=== PATIENT | male | born 1965 | race Hispanic/Latino ===

== ENCOUNTER 2017-05-03 11:24 | Emergency (ER) | payer MEDICARE ==
[2017-05-03 11:34] VITALS: BP 137/92
[2017-05-03 13:51] LABS: Basophils % (Auto) 0.6 % (0.0-1.8); Eosinophils # (Auto) 0.1 K/mm3 (0.0-0.4); Eosinophils % (Auto) 1.8 % (0.0-4.3); Hematocrit 46.9 % (35.5-45.6); Hemoglobin 15.6 gm/dl (11.8-15.2); Lymphocytes # (Auto) 2.3 K/mm3 (1.2-5.4); Lymphocytes % (Auto) 27.9 % (13.4-35.0); Mean Corpuscular HGB Conc 33 % (32-34); Mean Corpuscular Hemoglobin 30 pg (28-32); Mean Corpuscular Volume 89 fl (84-94); Monocytes # (Auto) 0.7 K/mm3 (0.0-0.8); Monocytes % (Auto) 8.2 % (0.0-7.3); Platelet Count 243 K/mm3 (140-440); Red Blood Count 5.25 M/mm3 (3.65-5.03)
[2017-05-03 14:09] LABS: BUN/Creatinine Ratio 15; Blood Urea Nitrogen 12 mg/dL (9-20); Calcium 9.1 mg/dL (8.4-10.2); Hemolysis Index 17
== END 2017-05-03 19:45 | disposition left against medical advice (07) ==
LOC: ED 11:24
DX: R42 Dizziness and giddiness (principal); R06.82 Tachypnea, not elsewhere classified; R00.1 Bradycardia, unspecified; Z53.21 Procedure and treatment not carried out due to patient leaving prior to being seen by health care provider
CPT/HCPCS: 36415; 80048; 85025

== ENCOUNTER 2018-06-27 14:32 | Emergency (ER) | payer MEDICARE ==
[2018-06-27 14:42] VITALS: BP 151/93
--- NOTE | 2018-06-27 14:48 | Emergency Department Report ---
Chief Complaint: Back Pain/Injury Stated Complaint: BACK PAIN TINGLING BOTH FEET Time Seen by Provider: 06/27/18 14:46 - HPI History of Present Illness: pain in back sp fall 1 y ago worse today no new trauma pos dysuria pmh htn obese NO OK/CVA/DM hx kidney stones rx none off his bp meds due to $ was on depakote- does not know why pcp none poor informant MSE completed - Exam Vital Signs: Vital Signs 06/27/18 14:37 Temperature 97.5 F L Pulse Rate 80 Respiratory 18 Rate Blood Pressure 151/93 O2 Sat by Pulse 96 Oximetry MSE screening note: Focused history and physical exam performed. Due to findings the following was ordered: ED Disposition for MSE Condition: Stable
[2018-06-27 15:22] LABS: Hemoglobin 14.9 gm/dl (11.8-15.2); Mean Corpuscular HGB Conc 33 % (32-34); Mean Corpuscular Volume 88 fl (84-94); Platelet Count 234 K/mm3 (140-440); Red Blood Count 5.14 M/mm3 (3.65-5.03); Red Cell Distribution Width 14.8 % (13.2-15.2)
[2018-06-27 15:29] LABS: Bilirubin,Urine NEG (Negative); Blood,Urine NEG (Negative); Color,Urine Yellow (Yellow); Mucus,Urine 1+ /HPF; Protein,Urine <15 mg/dL mg/dL (Negative)
[2018-06-27 15:38] LABS: Alanine Aminotransferase 24 units/L (7-56); Albumin 4.1 g/dL (3.9-5); BUN/Creatinine Ratio 10; Blood Urea Nitrogen 8 mg/dL (9-20); Calcium 8.9 mg/dL (8.4-10.2); Hemolysis Index 7
[2018-06-27] MEDS ORDERED: DELTASONE PO ONE (15:49)
[2018-06-27] MEDS ORDERED: TORADOL IM ONE (15:49)
--- NOTE | 2018-06-27 15:56 | Emergency Department Report ---
ED Back Pain/Injury HPI - General Chief Complaint: Back Pain/Injury Stated Complaint: BACK PAIN TINGLING BOTH FEET Time Seen by Provider: 06/27/18 14:46 Source: patient Limitations: No Limitations - History of Present Illness Initial Comments: This is a 53-year-old male nontoxic, well nourished in appearance, no acute signs of distress presents to the ED with c/o of acute on chronic lower back pain. Patient stated that the past 2 days he was moving furniture and developed this pain. Patient states has history of sciatica nerve pain which is similar symptoms as today. Patient states that pain radiates through to his bilateral lower extremity. Patient denies any trauma. Denies any bladder or bowel instability. Patient denies any urinary symptoms. Denies any fever, chills, nausea, vomiting, headache, stiff neck, chest pain or shortness of breath. Patient denies any numbness or tingling. Denies any allergies. MD Complaint: back pain -: days(s) (2) Similar Symptoms Previously: Yes Place: home Radiation: left leg, right leg Severity: mild Severity scale (0 -10): 8 Quality: aching Consistency: intermittent Improves With: immobilization, sitting upright Worsens With: movement, walking Context: while lifting, turning/twisting Associated Symptoms: denies other symptoms. denies: confusion, weakness, chest pain, numbness, difficulty walking, cough, difficulty urinating, diaphoresis, incontinence, fever/chills, constipation, headaches, abdominal pain, loss of appetite, malaise, nausea/vomiting, rash, seizure, shortness of breath, syncope - Related Data Home Medications Medication Instructions Recorded Confirmed Last Taken Divalproex Sodium [Depakote ER] 1,000 mg PO QHS 01/27/18 01/27/18 Unknown Divalproex Sodium [Depakote ER] 250 mg PO QHS 01/27/18 01/27/18 Unknown Lisinopril [Zestril TAB] 20 mg PO QDAY 01/27/18 01/27/18 Unknown cloNIDine [Catapres] 0.2 mg PO BID 01/27/18 01/27/18 Unknown Previous Rx's Medication Instructions Recorded Last Taken Type Pantoprazole [Protonix TAB] 40 mg PO QDAY #30 tablet 02/01/18 Unknown Rx traMADol [Ultram] 50 mg PO Q6HR PRN #14 tablet 02/01/18 Unknown Rx Cyclobenzaprine [Flexeril] 10 mg PO QHS PRN #10 tablet 06/27/18 Unknown Rx Ibuprofen [Motrin] 600 mg PO Q8H PRN #20 tablet 06/27/18 Unknown Rx Allergies Allergy/AdvReac Type Severity Reaction Status Date / Time No Known Allergies Allergy Verified 01/27/18 07:15 ED Review of Systems ROS: Stated complaint: BACK PAIN TINGLING BOTH FEET Other details as noted in HPI Constitutional: denies: chills, fever Eyes: denies: eye pain, eye discharge, vision change ENT: denies: ear pain, throat pain Respiratory: denies: cough, shortness of breath, wheezing Cardiovascular: denies: chest pain, palpitations Endocrine: no symptoms reported Gastrointestinal: denies: abdominal pain, nausea, vomiting, diarrhea Genitourinary: denies: urgency, dysuria Musculoskeletal: back pain. denies: joint swelling, arthralgia Skin: denies: rash, lesions Neurological: denies: headache, weakness, paresthesias Psychiatric: denies: anxiety, depression Hematological/Lymphatic: denies: easy bleeding, easy bruising ED Past Medical Hx - Past Medical History Previous Medical History?: Yes Hx Hypertension: Yes Hx Psychiatric Treatment: Yes (patient disabled secondary to "mental" problems) Additional medical history: Hernia - Surgical History Past Surgical History?: Yes Hx Appendectomy: Yes Additional Surgical History: Scrotal abscess drainage - Social History Smoking Status: Never Smoker Substance Use Type: Prescribed - Medications Home Medications: Home Medications Medication Instructions Recorded Confirmed Last Taken Type Divalproex Sodium [Depakote ER] 1,000 mg PO QHS 01/27/18 01/27/18 Unknown History Divalproex Sodium [Depakote ER] 250 mg PO QHS 01/27/18 01/27/18 Unknown History Lisinopril [Zestril TAB] 20 mg PO QDAY 01/27/18 01/27/18 Unknown History cloNIDine [Catapres] 0.2 mg PO BID 01/27/18 01/27/18 Unknown History Pantoprazole [Protonix TAB] 40 mg PO QDAY #30 tablet 02/01/18 Unknown Rx traMADol [Ultram] 50 mg PO Q6HR PRN #14 tablet 02/01/18 Unknown Rx Cyclobenzaprine [Flexeril] 10 mg PO QHS PRN #10 tablet 06/27/18 Unknown Rx Ibuprofen [Motrin] 600 mg PO Q8H PRN #20 tablet 06/27/18 Unknown Rx ED Physical Exam - General Limitations: No Limitations General appearance: alert, in no apparent distress - Head Head exam: Present: atraumatic, normocephalic - Neck Neck exam: Present: normal inspection, full ROM - Extremities Exam Extremities exam: Present: normal inspection, full ROM - Back Exam Back exam: Present: normal inspection, full ROM, paraspinal tenderness (lumbar paraspinal area). Absent: tenderness, CVA tenderness (R), CVA tenderness (L), muscle spasm, vertebral tenderness, rash noted - Expanded Back Exam Expanded Back exam: Absent: saddle anesthesia Back exam: Negative Straight Leg Raising: Left, Right - Neurological Exam Neurological exam: Present: alert, oriented X3, normal gait - Psychiatric Psychiatric exam: Present: normal affect, normal mood - Skin Skin exam: Present: warm, dry, intact, normal color. Absent: rash ED Course Vital Signs 06/27/18 14:37 Temperature 97.5 F L Pulse Rate 80 Respiratory 18 Rate Blood Pressure 151/93 O2 Sat by Pulse 96 Oximetry - Reevaluation(s) Reevaluation #1: 06/27/18 15:54 Patient is speaking in full sentences with no signs of distress noted. ED Medical Decision Making - Lab Data Result diagrams: 06/27/18 14:52 06/27/18 14:52 - Medical Decision Making This is a 53-year-old male that presents with low back strain. Patient is stable was examined by me. There is no spinal tenderness. There is no cauda equina syndrome during examination. No bladder or bowel instability. Patient received Toradol 60 mg IM and prednisone in the ED which he stated that his symptoms has resolved and subsided. Patient is discharged with muscle relaxant and Motrin. Patient was instructed not to operate any machinery while taking muscle relaxant as they cause her drowsiness. Patient was referred to Follow-up with a primary care doctor in 3-5 days or if symptoms worsen and continue return to emergency room as soon as possible. At time of discharge, the patient does not seem toxic or ill in appearance. No acute signs of distress noted. Patient agrees to discharge treatment plan of care. No further questions noted by the patient. This chart is dictated with using [employer] Critical care attestation.: If time is entered above; I have spent that time in minutes in the direct care of this critically ill patient, excluding procedure time. ED Disposition Clinical Impression: Low back strain Qualifiers: Encounter type: initial encounter Qualified Code(s): S39.012A - Strain of muscle, fascia and tendon of lower back, initial encounter Disposition: TO HOME OR SELFCARE Is pt being admited?: No Does the pt Need Aspirin: No Condition: Stable Instructions: Low Back Strain (ED), Cyclobenzaprine (By mouth) Additional Instructions: Follow-up with your primary care doctor in 3-5 days or if symptoms worsen such as bladder or bowel stability, chest pain, short of breath, numbness or tingling sensation in extremities, headache, dizziness, visual changes, nausea vomiting, or abdominal pain, return back to emergency room as was possible. Take ibuprofen and Flexeril as prescribed. Do not operate heavy machinery while taking Flexeril due to sedation Prescriptions: Cyclobenzaprine [Flexeril] 10 mg PO QHS PRN #10 tablet PRN Reason: Muscle Spasm Ibuprofen [Motrin] 600 mg PO Q8H PRN #20 tablet PRN Reason: Pain Referrals: PRIMARY CARE, [Referring] - 3-5 Days BISMARK MCNEIL MD [Staff Physician] - 3-5 Days [facility] [Outside] - 3-5 Days [facility] [Outside] - 3-5 Days Forms: Work/School Release Form(ED)
== END 2018-06-27 17:05 | disposition home or self-care (01) ==
LOC: ED 14:32
DX: S39.012A Strain of muscle, fascia and tendon of lower back, initial encounter (principal); I10 Essential (primary) hypertension; Z90.49 Acquired absence of other specified parts of digestive tract; W22.03XA Walked into furniture, initial encounter; Y93.89 Activity, other specified; Y92.098 Other place in other non-institutional residence as the place of occurrence of the external cause; Y99.8 Other external cause status
CPT/HCPCS: 36415; 80053; 81001; 85027; 96372; 99283; J1885; J7512

== ENCOUNTER 2018-09-02 19:32 | Inpatient (IN) | payer MEDICARE ==
--- NOTE | 2018-09-02 20:01 | Emergency Department Report ---
Blank Doc - Documentation Documentation: 53 y old male presents with lower abd pain with blood in the stool x todayfirst episode labs ordered ct abd main side eval
[2018-09-02 20:38] LABS: Basophils # (Auto) 0.1 K/mm3 (0.0-0.1); Basophils % (Auto) 0.5 % (0.0-1.8); Eosinophils % (Auto) 0.4 % (0.0-4.3); Hematocrit 45.4 % (35.5-45.6); Hemoglobin 15.9 gm/dl (11.8-15.2); Lymphocytes # (Auto) 1.9 K/mm3 (1.2-5.4); Lymphocytes % (Auto) 17.5 % (13.4-35.0); Mean Corpuscular HGB Conc 35 % (32-34); Mean Corpuscular Volume 88 fl (84-94); Monocytes # (Auto) 0.8 K/mm3 (0.0-0.8); Monocytes % (Auto) 7.4 % (0.0-7.3); Platelet Count 279 K/mm3 (140-440); Red Blood Count 5.16 M/mm3 (3.65-5.03); Red Cell Distribution Width 14.7 % (13.2-15.2)
[2018-09-02 20:50] LABS: INR 0.95 (0.87-1.13)
[2018-09-02 20:51] LABS: Partial Thromboplastin Time 25.7 Sec. (24.2-36.6)
[2018-09-02 20:57] LABS: Alanine Aminotransferase 30 units/L (7-56); Albumin 4.4 g/dL (3.9-5); BUN/Creatinine Ratio 12; Blood Urea Nitrogen 12 mg/dL (9-20); Calcium 9.1 mg/dL (8.4-10.2); Hemolysis Index 22
[2018-09-02] MEDS ORDERED: SOLU-Medrol ONE (22:36)
--- NOTE | 2018-09-02 22:55 | Emergency Department Report ---
ED GI Bleed HPI - General Chief complaint: GI Bleed Stated complaint: BLOOD IN STOOL Time Seen by Provider: 09/02/18 22:40 Source: patient Mode of arrival: Ambulatory Limitations: No Limitations - History of Present Illness Initial comments: Patient is a 53-year-old male that presents emergency room with bright red blood per rectum 1 day. Patient states his abdominal pain or blood per rectum started at 4 PM. Patient states symptoms worsening. Patient states pain is 10 out of 10. Patient states his pain is worse with movement and better with rest. Patient states he is having generalized abdominal pain but is mostly in the left lower quadrant. MD complaint: gross hematochezia -: Sudden Location: diffuse Radiation: none Severity scale (0 -10): 10 Quality: sharp, constant Consistency: constant Improves with: rest Worsens with: bowel movement, movement Associated Symptoms: abdominal pain. denies: nausea, vomiting, epistaxis, headaches, loss of appetite, malaise, easy bruising, rash, other bleeding, shortness of breath, syncope, weakness - Related Data Home Medications Medication Instructions Recorded Confirmed Last Taken Divalproex Sodium [Depakote ER] 1,000 mg PO QHS 01/27/18 01/27/18 Unknown Divalproex Sodium [Depakote ER] 250 mg PO QHS 01/27/18 01/27/18 Unknown Lisinopril [Zestril TAB] 20 mg PO QDAY 01/27/18 01/27/18 Unknown cloNIDine [Catapres] 0.2 mg PO BID 01/27/18 01/27/18 Unknown Previous Rx's Medication Instructions Recorded Last Taken Type Pantoprazole [Protonix TAB] 40 mg PO QDAY #30 tablet 02/01/18 Unknown Rx traMADol [Ultram] 50 mg PO Q6HR PRN #14 tablet 02/01/18 Unknown Rx Cyclobenzaprine [Flexeril] 10 mg PO QHS PRN #10 tablet 06/27/18 Unknown Rx Ibuprofen [Motrin] 600 mg PO Q8H PRN #20 tablet 06/27/18 Unknown Rx Allergies Allergy/AdvReac Type Severity Reaction Status Date / Time No Known Allergies Allergy Verified 01/27/18 07:15 ED Review of Systems ROS: Stated complaint: BLOOD IN STOOL Other details as noted in HPI Constitutional: denies: chills, fever Eyes: denies: eye pain, eye discharge, vision change ENT: denies: ear pain, throat pain Respiratory: denies: cough, shortness of breath, wheezing Cardiovascular: denies: chest pain, palpitations Endocrine: no symptoms reported Gastrointestinal: as per HPI, abdominal pain, hematochezia. denies: nausea, vomiting, diarrhea Genitourinary: denies: urgency, dysuria Musculoskeletal: denies: back pain, joint swelling, arthralgia Skin: denies: rash, lesions Neurological: denies: headache, weakness, paresthesias Psychiatric: denies: anxiety, depression Hematological/Lymphatic: denies: easy bleeding, easy bruising ED Past Medical Hx - Past Medical History Previous Medical History?: Yes Hx Hypertension: Yes Hx Psychiatric Treatment: Yes (patient disabled secondary to "mental" problems) Additional medical history: Hernia - Surgical History Past Surgical History?: Yes Hx Appendectomy: Yes Additional Surgical History: Scrotal abscess drainage - Family History Family history: no significant - Social History Smoking Status: Never Smoker Substance Use Type: None - Medications Home Medications: Home Medications Medication Instructions Recorded Confirmed Last Taken Type Divalproex Sodium [Depakote ER] 1,000 mg PO QHS 01/27/18 01/27/18 Unknown History Divalproex Sodium [Depakote ER] 250 mg PO QHS 01/27/18 01/27/18 Unknown History Lisinopril [Zestril TAB] 20 mg PO QDAY 01/27/18 01/27/18 Unknown History cloNIDine [Catapres] 0.2 mg PO BID 01/27/18 01/27/18 Unknown History Pantoprazole [Protonix TAB] 40 mg PO QDAY #30 tablet 02/01/18 Unknown Rx traMADol [Ultram] 50 mg PO Q6HR PRN #14 tablet 02/01/18 Unknown Rx Cyclobenzaprine [Flexeril] 10 mg PO QHS PRN #10 tablet 06/27/18 Unknown Rx Ibuprofen [Motrin] 600 mg PO Q8H PRN #20 tablet 06/27/18 Unknown Rx ED Physical Exam - General Limitations: No Limitations General appearance: alert, in no apparent distress - Head Head exam: Present: atraumatic, normocephalic - Eye Eye exam: Present: normal appearance - ENT ENT exam: Present: mucous membranes moist - Neck Neck exam: Present: normal inspection - Respiratory Respiratory exam: Present: normal lung sounds bilaterally. Absent: respiratory distress - Cardiovascular Cardiovascular Exam: Present: regular rate, normal rhythm. Absent: systolic murmur, diastolic murmur, rubs, gallop - GI/Abdominal GI/Abdominal exam: Present: soft, tenderness (left lower quadrant tenderness), normal bowel sounds - Rectal Rectal exam: Present: deferred - Extremities Exam Extremities exam: Present: normal inspection - Back Exam Back exam: Present: normal inspection - Neurological Exam Neurological exam: Present: alert, oriented X3 - Psychiatric Psychiatric exam: Present: normal affect, normal mood - Skin Skin exam: Present: warm, dry, intact, normal color. Absent: rash ED Course Vital Signs 09/02/18 09/02/18 09/02/18 19:40 20:00 23:00 Temperature 98.1 F 98.1 F Pulse Rate 111 H 107 H 82 Respiratory 18 18 16 Rate Blood Pressure 149/100 149/100 134/89 O2 Sat by Pulse 97 97 97 Oximetry 09/02/18 09/02/18 09/02/18 23:15 23:30 23:46 Temperature Pulse Rate 75 79 Respiratory 18 10 L 17 Rate Blood Pressure 124/80 124/80 O2 Sat by Pulse 98 98 99 Oximetry 09/03/18 09/03/18 00:00 00:16 Temperature Pulse Rate 80 82 Respiratory 15 18 Rate Blood Pressure 124/80 149/76 O2 Sat by Pulse 98 97 Oximetry - Reevaluation(s) Reevaluation #1: Discussed all results with patient. Patient will be admitted to the hospitalist service. Patient agrees to plan of care. 09/03/18 00:46 - Consultations Consultation #1: GI paged 09/02/18 23:03 GI consulted for bright red blood per rectum. Dr. Vital, GI recommends admission and nothing by mouth after midnight and CT scan of the abdomen. 09/02/18 23:10 Consultation #2: Hospitalist consultation for admission. Hospitalist to admit patient. Hospitalist to assume care patient. 09/03/18 00:46 ED Medical Decision Making - Lab Data Result diagrams: 09/02/18 20:14 09/02/18 20:14 - Radiology Data Radiology results: report reviewed PROCEDURE: CT ABDOMEN PELVIS WO CON TECHNIQUE: Computerized axial tomography of the abdomen and pelvis was performed without intravenous contrast. This study is performed without intravascular contrast material and its sensitivity for abdominal and pelvic pathology, including neoplasms, inflamma tion, abscess, free fluid, thrombosis, arterial dissection and infarction, is reduced compared with a contrast enhanced study. HISTORY: abd pain COMPARISONS: None . FINDINGS: Visualized lower thorax: No significant abnormality. Liver: Normal size and attenuation. Spleen: Normal size and attenuation. Gallbladder and biliary system: Normal. Pancreas: Normal. Adrenals: Normal. Kidneys: Both kidneys have a normal size. No hydronephrosis. There is a 5 cm cyst off the posterior left renal cortex.. GI tract: The stomach is normal. A small hiatal hernia is identified. Small bowel has a normal caliber without obstruction. No ileus or enteritis. The cecum, appendix region and colon are normal. . Lymph nodes and mesentery: Normal. Vasculature: Normal.. Bladder: Normal. Reproductive organs: Normal. Peritoneum: No free fluid. Musculoskeletal structures: No significant abnormality. Other: There is a fat-containing umbilical hernia.. IMPRESSION: There is no evidence of intestinal or urinary tract obstruction. No ileus or enteritis. There is a moderate-sized fat-containing umbilical hernia. . - Medical Decision Making pt Is a 53-year-old male presents to emergency room with rectal bleeding. And also complains of abdominal pain. Patient has left lower quadrant tenderness. Patient will be treated for a diverticular bleed and diverticulitis. Patient given Zosyn. Patient was admitted to the hospitalist service. GI consult. - Differential Diagnosis diverticular bleed. Diverticulitis. Abdominal pain. GI bleed. Critical Care Time: Yes Critical care attestation.: If time is entered above; I have spent that time in minutes in the direct care of this critically ill patient, excluding procedure time. Critical Care Time: 35 minutes ED Disposition Clinical Impression: Diverticulitis, PRB (rectal bleeding) GI bleed Qualifiers: GI bleed type/associated pathology: unspecified gastrointestinal hemorrhage type Qualified Code(s): K92.2 - Gastrointestinal hemorrhage, unspecified Abdominal pain Qualifiers: Abdominal location: generalized Qualified Code(s): R10.84 - Generalized abdominal pain Disposition: OP ADMIT IP TO THIS HOSP Is pt being admited?: Yes Does the pt Need Aspirin: No Condition: Critical Forms: Accompanied Note Time of Disposition: 00:43
--- NOTE | 2018-09-03 00:16 | Cat Scan Report ---
PROCEDURE: CT ABDOMEN PELVIS WO CON TECHNIQUE: Computerized axial tomography of the abdomen and pelvis was performed without intravenous contrast. This study is performed without intravascular contrast material and its sensitivity for ab dominal and pelvic pathology, including neoplasms, inflammation, abscess, free fluid, thrombosis, art erial dissection and infarction, is reduced compared with a contrast enhanced study. HISTORY: abd pain COMPARISONS: None . FINDINGS: Visualized lower thorax: No significant abnormality. Liver: Normal size and attenuation. Spleen: Normal size and attenuation. Gallbladder and biliary system: Normal. Pancreas: Normal. Adrenals: Normal. Kidneys: Both kidneys have a normal size. No hydronephrosis. There is a 5 cm cyst off the posterior l eft renal cortex.. GI tract: The stomach is normal. A small hiatal hernia is identified. Small bowel has a normal calib er without obstruction. No ileus or enteritis. The cecum, appendix region and colon are normal. . Lymph nodes and mesentery: Normal. Vasculature: Normal.. Bladder: Normal. Reproductive organs: Normal. Peritoneum: No free fluid. Musculoskeletal structures: No significant abnormality. Other: There is a fat-containing umbilical hernia.. IMPRESSION: There is no evidence of intestinal or urinary tract obstruction. No ileus or enteritis. There is a moderate-sized fat-containing umbilical hernia. . This document is electronically signed by Katy Ferraro DO., Sep 03 2018 12:14:06 AM ET
[2018-09-03] MEDS ORDERED: ZOSYN/NS 4.5GM/100ML 4.5 GM/100 ML VIAL IV ONE (00:46)
[2018-09-03] MEDS ORDERED: ZOFRAN IV PRN (01:52)
[2018-09-03] MEDS ORDERED: DILAUDID IV PRN (01:52)
[2018-09-03] MEDS ORDERED: SODIUM CHLORIDE FLUSH SYRINGE 10 ML IV PRN (01:52)
[2018-09-03] MEDS ORDERED: PERCOCET 5/325 PO PRN (01:52)
[2018-09-03] MEDS ORDERED: TYLENOL PO PRN (01:52)
[2018-09-03 02:12] LABS: Hematocrit 45.6 % (35.5-45.6); Hemoglobin 15.1 gm/dl (11.8-15.2)
--- NOTE | 2018-09-03 02:43 | History and Physical Report ---
History of Present Illness Chief complaint: Rectal Bleed History of present illness: Patient is a 53 year old male with history of hypertension who presented to the ED on account of a few hours history of passage of bright red blood per rectum. He has associated generalized abdominal pain, palpitation, headaches and lightheadedness. He denied chest pain, shortness of breath, constipation, diarrhea, nausea, vomiting, syncope or loss of consciousness. No preceding history of trauma and no prior history of presenting complaint. Patient denies chronic NSAID use. Past History Past Medical History: hypertension, other (umbilical hernia) Past Surgical History: hernia repair Social history: no significant social history (patient denies tobacco, alcohol or illicit drug use) Family history: other (reviewed and noncontributory to GI bleed) Medications and Allergies Allergies Allergy/AdvReac Type Severity Reaction Status Date / Time No Known Allergies Allergy Verified 01/27/18 07:15 Home Medications Medication Instructions Recorded Confirmed Last Taken Type Divalproex Sodium [Depakote ER] 1,000 mg PO QHS 01/27/18 01/27/18 Unknown History Divalproex Sodium [Depakote ER] 250 mg PO QHS 01/27/18 01/27/18 Unknown History Lisinopril [Zestril TAB] 20 mg PO QDAY 01/27/18 01/27/18 Unknown History cloNIDine [Catapres] 0.2 mg PO BID 01/27/18 01/27/18 Unknown History Pantoprazole [Protonix TAB] 40 mg PO QDAY #30 tablet 02/01/18 Unknown Rx traMADol [Ultram] 50 mg PO Q6HR PRN #14 tablet 02/01/18 Unknown Rx Cyclobenzaprine [Flexeril] 10 mg PO QHS PRN #10 tablet 06/27/18 Unknown Rx Ibuprofen [Motrin] 600 mg PO Q8H PRN #20 tablet 06/27/18 Unknown Rx Active Meds: Active Medications Acetaminophen (Tylenol) 650 mg PO Q4H PRN PRN Reason: Pain MILD(1-3)/Fever >100.5/TEMPLETON Hydromorphone HCl (Dilaudid) 0.5 mg IV Q3H PRN PRN Reason: Pain , Severe (7-10) Sodium Chloride (Nacl 0.9% 1000 Ml) 1,000 mls @ 75 mls/hr IV DIRECT FERN Ondansetron HCl (Zofran) 4 mg IV Q8H PRN PRN Reason: Nausea And Vomiting Oxycodone/Acetaminophen (Percocet 5/325) 1 tab PO Q6H PRN PRN Reason: Pain, Moderate (4-6) Pantoprazole Sodium (Protonix) 40 mg IV QDAY FERN Sodium Chloride (Sodium Chloride Flush Syringe 10 Ml) 10 ml IV BID FERN Sodium Chloride (Sodium Chloride Flush Syringe 10 Ml) 10 ml IV PRN PRN PRN Reason: LINE FLUSH Review of Systems All systems: negative (except as documented in the HPI, 14 point systems reviewed were negative) Exam - Constitutional Vitals: Temp Pulse Resp BP Pulse Ox 98.1 F 82 18 149/76 97 09/02/18 20:00 09/03/18 00:16 09/03/18 00:16 09/03/18 00:16 09/03/18 00:16 General appearance: Present: no acute distress - EENT Eyes: Present: PERRL, EOM intact ENT: hearing intact, clear oral mucosa - Neck Neck: Present: supple, normal ROM - Respiratory Respiratory effort: normal Respiratory: bilateral: CTA - Cardiovascular Rhythm: regular Heart Sounds: Present: S1 & S2 - Extremities Extremities: pulses symmetrical, No edema - Abdominal General gastrointestinal: Present: soft, tender (mild and generalized), normal bowel sounds Male genitourinary: Present: deferred - Rectal Rectal Exam: deferred - Integumentary Integumentary: Present: clear, warm, dry - Musculoskeletal Musculoskeletal: strength equal bilaterally - Psychiatric Psychiatric: appropriate mood/affect, intact judgment & insight - Neurologic Neurologic: CNII-XII intact Results - Labs CBC & Chem 7: 09/03/18 02:00 09/02/18 20:14 Labs: Laboratory Last Values WBC 10.8 K/mm3 (4.5-11.0) 09/02/18 20:14 RBC 5.16 M/mm3 (3.65-5.03) H 09/02/18 20:14 Hgb 15.1 gm/dl (11.8-15.2) 09/03/18 02:00 Hct 45.6 % (35.5-45.6) 09/03/18 02:00 MCV 88 fl (84-94) 09/02/18 20:14 MCH 31 pg (28-32) 09/02/18 20:14 MCHC 35 % (32-34) H 09/02/18 20:14 RDW 14.7 % (13.2-15.2) 09/02/18 20:14 Plt Count 279 K/mm3 (140-440) 09/02/18 20:14 Lymph % (Auto) 17.5 % (13.4-35.0) 09/02/18 20:14 Pike % (Auto) 7.4 % (0.0-7.3) H 09/02/18 20:14 Eos % (Auto) 0.4 % (0.0-4.3) 09/02/18 20:14 Baso % (Auto) 0.5 % (0.0-1.8) 09/02/18 20:14 Lymph # 1.9 K/mm3 (1.2-5.4) 09/02/18 20:14 Pike # 0.8 K/mm3 (0.0-0.8) 09/02/18 20:14 Eos # 0.0 K/mm3 (0.0-0.4) 09/02/18 20:14 Baso # 0.1 K/mm3 (0.0-0.1) 09/02/18 20:14 Seg Neutrophils % 74.2 % (40.0-70.0) H 09/02/18 20:14 Seg Neutrophils # 8.0 K/mm3 (1.8-7.7) H 09/02/18 20:14 PT 13.2 Sec. (12.2-14.9) 09/02/18 20:14 INR 0.95 (0.87-1.13) 09/02/18 20:14 APTT 25.7 Sec. (24.2-36.6) 09/02/18 20:14 Sodium 138 mmol/L (137-145) 09/02/18 20:14 Potassium 4.3 mmol/L (3.6-5.0) 09/02/18 20:14 Chloride 100.8 mmol/L (98-107) 09/02/18 20:14 Carbon Dioxide 23 mmol/L (22-30) 09/02/18 20:14 19 mmol/L 09/02/18 20:14 BUN 12 mg/dL (9-20) 09/02/18 20:14 1.0 mg/dL (0.8-1.5) 09/02/18 20:14 Estimated GFR > 60 ml/min 09/02/18 20:14 12 % 09/02/18 20:14 Glucose 102 mg/dL (75-100) H 09/02/18 20:14 Lactic Acid 1.90 mmol/L (0.7-2.0) 09/02/18 20:14 Calcium 9.1 mg/dL (8.4-10.2) 09/02/18 20:14 0.30 mg/dL (0.1-1.2) 09/02/18 20:14 AST 16 units/L (5-40) 09/02/18 20:14 ALT 30 units/L (7-56) 09/02/18 20:14 88 units/L (35-129) 09/02/18 20:14 7.4 g/dL (6.3-8.2) 09/02/18 20:14 4.4 g/dL (3.9-5) 09/02/18 20:14 1.5 % 09/02/18 20:14 Assessment and Plan Assessment and plan: Rectal Bleed -H/H stable, will monitor -GI consulted in the ED Hypertension -Stable -On when necessary antihypertensive History of umbilicus hernia without incarceration DVT prophylaxis with SCD Disposition: For discharge when medically stable Time spent: 35 minutes
[2018-09-03] MEDS ORDERED: APRESOLINE IV PRN (02:45)
[2018-09-03] MEDS: NACL 0.9% 1000 ML 1,000 ML IV SCH ×2 (04:48→16:51)
--- NOTE | 2018-09-03 07:48 | Event Note ---
Date: 09/03/18 Patient seen and examined medical records reviewed Patient was admitted with rectal bleeding, hemodynamically stable Gastrointestinal significant drop, did not have any new episodes of rectal bleeding since admission Follow-up GI evaluation and recommendations Agree with the current management, possible discharge in 1-2 days if stable Plan of care is reviewed for the patient and his nurse
[2018-09-03] MEDS ORDERED: PROTONIX IV SCH (10:00)
[2018-09-03] MEDS: SODIUM CHLORIDE FLUSH SYRINGE 10 ML IV SCH ×2 (10:32→21:30)
[2018-09-03 11:27] LABS: Hematocrit 44.6 % (35.5-45.6); Hemoglobin 14.6 gm/dl (11.8-15.2)
[2018-09-03 15:02] LABS: Hemoglobin 14.6 gm/dl (11.8-15.2)
--- NOTE | 2018-09-03 17:35 | Event Note ---
Date: 09/03/18 - full consult dictated - ok to d/c from GI standpoint - call if needed
--- NOTE | 2018-09-04 00:53 | Consultation ---
REFERRING PHYSICIAN: Norma Rosado MD INDICATION: Rectal bleeding. HISTORY OF PRESENT ILLNESS: The patient is a 53-year-old white male with history of hypertension, presents with rectal bleeding. The patient reports he was on a drive and could not get off and exit for more than 50 minutes. He reports he subsequently had a bloody bowel movement per rectum. He reports he only had that one time. He reports some mild abdominal pain, lightheadedness and dizziness. Denies any other upper GI symptoms including nausea, vomiting, heartburn, reflux, indigestion. The patient reports last colonoscopy was 3 to 4 months ago and was benign. The patient subsequently came to the Emergency Room where he was seen, evaluated and admitted. PAST MEDICAL HISTORY: Hypertension, ____, hernia repair. ALLERGIES: No known drug allergies. MEDICATIONS: Reviewed and updated in chart. SOCIAL HISTORY: Denies alcohol, tobacco or drug abuse. FAMILY HISTORY: Negative for colon cancer, IBD, or liver disease. REVIEW OF SYSTEMS: GENERAL: Reports mild weakness. HEENT: No visual complaints or tinnitus. PULMONARY: No shortness of breath. No cough. No chest pain. GASTROINTESTINAL: Reports rectal bleeding. All points of 13-point review of systems otherwise negative. PHYSICAL EXAMINATION: VITAL SIGNS: Temperature of 98.9, pulse 71, respirations 20, blood pressure 106/69. GENERAL: Fairly nourished male in no acute distress. HEENT: Pupils are equal, round and reactive. PULMONARY: Clear to auscultation bilaterally. CARDIOVASCULAR: Regular rhythm. Normal S1, S2. ABDOMEN: Positive bowel sounds, soft. SKIN: No obvious rashes. LABORATORY DATA: Pertinent for white count of 10.8, hemoglobin and hematocrit of 15.9 and 45.4, platelet count 279. Chem-7 within normal limits. Coags within normal limits. LFTs within normal limits. ASSESSMENT AND PLAN: A 53-year-old white male, who presents with one bout of bloody bowel movement overnight after holding his bowel movement for a while because he was driving and could not find an exit. The patient also reports he had a colonoscopy 3 to 4 months ago, which was benign. Possible hemorrhoids versus fissure versus other. The patient has had repeated H and H, which have been stable. He has had no further rectal bleeding. Management is noted below. PLAN: 1. Follow hematocrit and transfuse as needed. 2. Advance diet. 3. Okay to discharge from GI standpoint with no plans of intervention at this time. 4. We will sign off, call if needed. JOB# [id number] CAB/NTS
[2018-09-04] MEDS: NACL 0.9% 1000 ML 1,000 ML IV SCH (05:48)
[2018-09-04 05:59] VITALS: BP 117/78
[2018-09-04 06:12] LABS: BUN/Creatinine Ratio 12; Blood Urea Nitrogen 11 mg/dL (9-20); Calcium 8.6 mg/dL (8.4-10.2); Hemolysis Index 10
[2018-09-04] MEDS: SODIUM CHLORIDE FLUSH SYRINGE 10 ML IV SCH (09:21)
--- NOTE | 2018-09-04 09:24 | Discharge Summary ---
Providers - Providers Date of Admission: 09/03/18 03:52 Date of discharge: 09/04/18 Attending physician: FELIX ESTRELLA 09/02/18 23:13 Consult to Physician [CONS] Routine Comment: Dr. Portillo spoke with Dr. Vital @ 1245 Consulting Provider: WARREN VITAL Physician Instructions: Reason For Exam: gi bleed. brbpr Primary care physician: REBECA BOLAND Hospitalization Reason for admission: Rectal bleeding Condition: Stable Pertinent studies: CT abdomen and pelvis; No acute abnormality, moderate size fat containing umbilical hernia Hospital course: 53-year-old male patient with significant history of hypertension not on any medications as admitted through emergency room with history of rectal bleeding.The patient was symptomatically managed closely monitored for his H&H and vital signs which remained stable, Evaluated by GI, patient did not have any new episodes of rectal bleeding or hematemesis Today patient is comfortable in no new complaints vital signs stable physical examination unremarkable Hemodynamically and clinically stable at discharge, GI cleared for discharge and follow up in the office for further evaluation and management as needed. Discharge diagnosis; --Rectal Bleeding ; present on admission resolved Patient's H&H stable, vital signs stable Evaluation by GI, cleared for discharge and follow up in the office --History of Hypertension; well controlled Did not need any medications, advised to closely monitor --Umbilical hernia; reducible, no obstruction or strangulation Outpatient surgery evaluation and management --Morbid obesity; BMI 42.9, advised weight reduction Advised to see private automobile engine assembler for sleep studies to rule out obstructive sleep apnea patient is stable for discharge Disposition: DC-01 TO HOME OR SELFCARE Time spent for discharge: 31 min Core Measure Documentation - Palliative Care Palliative Care/ Comfort Measures: Not Applicable - Core Measures Any of the following diagnoses?: none Exam - Constitutional Vitals: Temp Pulse Resp BP Pulse Ox 98.0 F 63 18 117/78 93 09/04/18 05:57 09/04/18 05:57 09/04/18 05:57 09/04/18 05:57 09/04/18 05:57 General appearance: Present: no acute distress, well-nourished, obese (morbidly obese) - EENT Eyes: Present: PERRL, EOM intact - Neck Neck: Present: supple, normal ROM - Respiratory Respiratory effort: normal Respiratory: bilateral: diminished, negative: rales, rhonchi, wheezing - Cardiovascular Rhythm: regular Heart Sounds: Present: S1 & S2 - Extremities Extremities: no ischemia, No edema - Abdominal General gastrointestinal: Present: soft, non-tender, non-distended, normal bowel sounds - Integumentary Integumentary: Present: clear, warm - Musculoskeletal Musculoskeletal: strength equal bilaterally - Psychiatric Psychiatric: appropriate mood/affect, cooperative - Neurologic Neurologic: CNII-XII intact, moves all extremities Plan Activity: no restrictions Diet: regular Additional Instructions: If you have episodes of rectal bleedindg contact M.D. or go to emergency room Follow up with: REBECA BOLAND MD [Primary Care Provider] - 7 Days DANIEL MACHADO MD [Staff Physician] - 7 Days Forms: Accompanied Note Prescriptions: Pantoprazole [Protonix TAB] 40 mg PO DAILY #14 tablet
[2018-09-04] MEDS ORDERED: PROTONIX PO SCH (10:00)
== END 2018-09-04 10:40 | disposition home or self-care (01) | DRG 378 ==
LOC: ED 19:32 → 3A 09-03 03:52
PROVIDERS: ADMIT Internal Medicine; ATTEND Internal Medicine
DX: K62.5 Hemorrhage of anus and rectum (principal); Z68.41 Body mass index [BMI] 40.0-44.9, adult; I10 Essential (primary) hypertension; E66.01 Morbid (severe) obesity due to excess calories; K42.9 Umbilical hernia without obstruction or gangrene; K57.90 Diverticulosis of intestine, part unspecified, without perforation or abscess without bleeding; Z90.49 Acquired absence of other specified parts of digestive tract
CPT/HCPCS: 36415; 74176; 80048; 80053; 82140; 85014; 85018; 85025; 85610; 85730; G0378; C9113; J2543; J2930; J7030

== ENCOUNTER 2019-12-01 13:10 | Emergency (ER) | payer MEDICARE ==
[2019-12-01 13:59] VITALS: BP 132/88
--- NOTE | 2019-12-01 15:21 | Event Note ---
ED Screening Note Date of service: 12/01/19 Time: 15:20 ED Screening Note: This is a 54-year-old male presents ED complaining of abdominal/flank pain x3 days. Denies nausea, vomiting or diarrhea. Patient also complaining of ringing in the ears This initial assessment/diagnostic orders/clinical plan/treatment(s) is/are subject to change based on patients health status, clinical progression and re- assessment by fellow clinical providers in the ED. Further treatment and workup at subsequent clinical providers discretion. Patient/guardian urged not to elope from the ED as their condition may be serious if not clinically assessed and managed. Initial orders include: Labs ordered, urinalysis.
[2019-12-01 16:40] LABS: Bilirubin,Urine NEG (Negative); Blood,Urine NEG (Negative); Color,Urine Yellow (Yellow); Mucus,Urine 1+ /HPF; Protein,Urine <15 mg/dL mg/dL (Negative)
[2019-12-01 17:15] LABS: Basophils # (Auto) 0.1 K/mm3 (0.0-0.1); Basophils % (Auto) 0.9 % (0.0-1.8); Eosinophils # (Auto) 0.1 K/mm3 (0.0-0.4); Eosinophils % (Auto) 1.5 % (0.0-4.3); Hematocrit 49.1 % (35.5-45.6); Hemoglobin 16.3 gm/dl (11.8-15.2); Lymphocytes # (Auto) 2.1 K/mm3 (1.2-5.4); Lymphocytes % (Auto) 21.6 % (13.4-35.0); Mean Corpuscular HGB Conc 33 % (32-34); Mean Corpuscular Volume 90 fl (84-94); Monocytes # (Auto) 0.8 K/mm3 (0.0-0.8); Monocytes % (Auto) 8.5 % (0.0-7.3); Platelet Count 253 K/mm3 (140-440); Red Blood Count 5.45 M/mm3 (3.65-5.03); Red Cell Distribution Width 14.3 % (13.2-15.2)
[2019-12-01 17:35] LABS: Alanine Aminotransferase 33 units/L (7-56); Albumin 4.6 g/dL (3.9-5); BUN/Creatinine Ratio 20; Blood Urea Nitrogen 16 mg/dL (9-20); Calcium 9.4 mg/dL (8.4-10.2); Hemolysis Index 12
[2019-12-01] MEDS ORDERED: DICYCLOMINE 20 MG TAB PO ONE (20:52)
[2019-12-01] MEDS ORDERED: ONDANSETRON 4 MG ODT TAB PO ONE (20:52)
[2019-12-01] MEDS ORDERED: traMADol 50 MG TAB PO ONE (21:27)
--- NOTE | 2019-12-01 21:29 | Emergency Department Report ---
ED Abdominal Pain HPI - General Chief Complaint: Abdominal Pain Stated Complaint: stomach cramps Time Seen by Provider: 12/01/19 20:38 Source: patient Mode of arrival: Ambulatory Limitations: No Limitations - History of Present Illness Initial Comments: Patient is a 54-year-old male with a history of GERD obesity, who presents for abdominal pain to right flank x2 days. Patient states dysuria frequency, he denies hematuria there is no penile discharge. No history of renal stone. Patient denies fevers or chills or nausea vomiting. Symptoms are exacerbated by voiding decribed as mild burning with spasm. Symptoms are relieved by nothing tried MD Complaint: abdominal pain Onset/Timin -: days(s) Location: R flank Radiation: suprapubic Severity: moderate Severity scale (0 -10): 5 Quality: cramping Consistency: intermittent Improves With: nothing Worsens With: other (voiding ) Associated Symptoms: dysuria. denies: nausea, vomiting, diarrhea, fever, chills, constipation, hematuria - Related Data Previous Rx's Medication Instructions Recorded Last Taken Type Pantoprazole [Protonix TAB] 40 mg PO DAILY #14 tablet 09/04/18 Unknown Rx cephALEXin [Keflex] 500 mg PO BID 7 Days #14 cap 12/01/19 Unknown Rx traMADoL [Ultram] 50 mg PO Q8HR PRN #9 tablet 12/01/19 Unknown Rx Allergies Allergy/AdvReac Type Severity Reaction Status Date / Time No Known Allergies Allergy Verified 01/27/18 07:15 ED Review of Systems ROS: Stated complaint: stomach cramps Other details as noted in HPI Constitutional: denies: chills, fever Eyes: denies: eye pain, eye discharge, vision change ENT: denies: ear pain, throat pain Respiratory: denies: cough, shortness of breath, wheezing Cardiovascular: denies: chest pain, palpitations Endocrine: no symptoms reported Gastrointestinal: abdominal pain. denies: nausea, vomiting, diarrhea, constipation, melena Genitourinary: dysuria, frequency. denies: urgency, hematuria, discharge Musculoskeletal: back pain (right flank ). denies: joint swelling, arthralgia Skin: denies: rash, lesions Neurological: denies: headache, weakness, paresthesias Psychiatric: denies: anxiety, depression Hematological/Lymphatic: denies: easy bleeding, easy bruising ED Past Medical Hx - Past Medical History Previous Medical History?: Yes Hx Hypertension: Yes Hx Psychiatric Treatment: Yes (patient disabled secondary to "mental" problems) Additional medical history: Hernia - Surgical History Past Surgical History?: Yes Hx Appendectomy: Yes Additional Surgical History: Scrotal abscess drainage - Social History Smoking Status: Never Smoker Substance Use Type: None - Medications Home Medications: Home Medications Medication Instructions Recorded Confirmed Last Taken Type Pantoprazole [Protonix TAB] 40 mg PO DAILY #14 tablet 09/04/18 Unknown Rx cephALEXin [Keflex] 500 mg PO BID 7 Days #14 cap 12/01/19 Unknown Rx traMADoL [Ultram] 50 mg PO Q8HR PRN #9 tablet 12/01/19 Unknown Rx ED Physical Exam - General Limitations: No Limitations General appearance: alert, in no apparent distress - Head Head exam: Present: atraumatic, normocephalic - Eye Eye exam: Present: normal appearance, EOMI Pupils: Present: normal accommodation - ENT ENT exam: Present: mucous membranes moist - Neck Neck exam: Present: normal inspection, full ROM. Absent: tenderness - Respiratory Respiratory exam: Present: normal lung sounds bilaterally. Absent: respiratory distress, wheezes, stridor - Cardiovascular Cardiovascular Exam: Present: regular rate, normal rhythm, normal heart sounds. Absent: systolic murmur, diastolic murmur, rubs, gallop - GI/Abdominal GI/Abdominal exam: Present: soft, normal bowel sounds. Absent: distended, tenderness, guarding, rebound, rigid, bruit, hernia - Rectal Rectal exam: Present: deferred - Extremities Exam Extremities exam: Present: normal inspection, full ROM. Absent: tenderness - Back Exam Back exam: Present: normal inspection, full ROM. Absent: tenderness, CVA tenderness (R), CVA tenderness (L) - Neurological Exam Neurological exam: Present: alert, oriented X3, CN II-XII intact, normal gait - Psychiatric Psychiatric exam: Present: normal affect, normal mood - Skin Skin exam: Present: warm, dry, intact, normal color. Absent: rash ED Course Vital Signs 12/01/19 13:54 Temperature 97.7 F Pulse Rate 86 Respiratory 18 Rate Blood Pressure 132/88 [Right] O2 Sat by Pulse 97 Oximetry ED Medical Decision Making - Lab Data Result diagrams: 12/01/19 16:55 12/01/19 16:55 Labs 0812/01/19 12/01/19 16:55 16:55 Unknown WBC 9.8 RBC 5.45 H Hgb 16.3 H Hct 49.1 H MCV 90 MCH 30 MCHC 33 RDW 14.3 Plt Count 253 Lymph % (Auto) 21.6 Wolfe % (Auto) 8.5 H Eos % (Auto) 1.5 Baso % (Auto) 0.9 Lymph # 2.1 Wolfe # 0.8 Eos # 0.1 Baso # 0.1 Seg Neutrophils % 67.5 Seg Neutrophils # 6.6 Sodium 137 Potassium 4.2 Chloride 97.9 L Carbon Dioxide 25 Anion Gap 18 BUN 16 Creatinine 0.8 Estimated GFR > 60 BUN/Creatinine Ratio 20 Glucose 97 Calcium 9.4 Total Bilirubin 0.50 AST 19 ALT 33 Alkaline Phosphatase 99 Total Protein 7.4 Albumin 4.6 Albumin/Globulin Ratio 1.6 Lipase 19 Urine Color Yellow Urine Turbidity Clear Urine pH 5.0 Ur Specific [place] 1.024 Urine Protein <15 mg/dl Urine Glucose (UA) Neg Urine Ketones Neg Urine Blood Neg Urine Nitrite Neg Urine Bilirubin Neg Urine Urobilinogen 2.0 Ur Leukocyte Esterase Neg Urine WBC (Auto) 1.0 Urine RBC (Auto) 2.0 Urine Mucus 1+ - Medical Decision Making UA is normal no hematuria, BUN/creatinine are normal , there is no nausea vomiting, fever or chills. Plan treat for dysuria , Keflex, Ultram as needed follow-up with PCP Dr. Nash in 2 to 3 days. Patient will return to ED should symptoms worsen. Patient verbalized agreement and understanding with same. Patient will be DC'd home in stable condition at this time Critical care attestation.: If time is entered above; I have spent that time in minutes in the direct care of this critically ill patient, excluding procedure time. ED Disposition Clinical Impression: Dysuria Disposition: DC-01 TO HOME OR SELFCARE Is pt being admited?: No Does the pt Need Aspirin: No Condition: Stable Instructions: Dysuria (ED) Additional Instructions: follow up with Dr Nash in 2-3 days , return to emergency if symptoms worsen. Prescriptions: cephALEXin [Keflex] 500 mg PO BID 7 Days #14 cap traMADoL [Ultram] 50 mg PO Q8HR PRN #9 tablet PRN Reason: Pain Forms: Work/School Release Form(ED) Time of Disposition: 21:35
== END 2019-12-01 21:45 | disposition home or self-care (01) ==
LOC: ED 13:10
DX: R30.0 Dysuria (principal); R35.0 Frequency of micturition; R10.9 Unspecified abdominal pain; I10 Essential (primary) hypertension; Z98.890 Other specified postprocedural states; Z79.899 Other long term (current) drug therapy
CPT/HCPCS: 36415; 80053; 81001; 83690; 85025; 99283; Q0162